=== PATIENT | female | born 1950 | race Caucasian/White ===

== ENCOUNTER 2017-04-16 01:29 | Emergency (ER) | payer OTHER ==
[~2017-04-16] VITALS: Ht 170.2 cm; Wt 75.3 kg
[2017-04-16 08:09] VITALS: BP 110/64
== END 2017-04-16 08:09 | disposition home or self-care (01) ==
LOC: ED 01:29
DX: S52.125A Nondisplaced fracture of head of left radius, initial encounter for closed fracture (principal); M25.512 Pain in left shoulder; E11.9 Type 2 diabetes mellitus without complications; Z88.0 Allergy status to penicillin; Z88.8 Allergy status to other drugs, medicaments and biological substances; Z79.899 Other long term (current) drug therapy; Z79.4 Long term (current) use of insulin; Z95.1 Presence of aortocoronary bypass graft; Z95.5 Presence of coronary angioplasty implant and graft; W01.0XXA Fall on same level from slipping, tripping and stumbling without subsequent striking against object, initial encounter; Y93.89 Activity, other specified; Y92.89 Other specified places as the place of occurrence of the external cause; Y99.8 Other external cause status
CPT/HCPCS: Q0092